=== PATIENT | female | born 1995 | race Caucasian/White ===

== ENCOUNTER 2025-08-21 09:55 | Emergency (ER) | payer BC ==
[2025-08-21 10:28] LABS: Absolute Lymphocytes (CBC) 1.1 K/uL (0.7-4.9); Hematocrit 39.7 % (36.0-45.0); Hemoglobin 13.3 g/dL (12.0-15.0); MCH 31.7 pg (27.0-35.0); MCHC 33.4 g/dL (32.0-36.0); MCV 94.8 fL (80-100); MPV 7.6 fL (7.6-11.3); Nucleated RBC Absolute Count 0.0 (0-0); Nucleated Red Blood Cells % 0.0 % (0-0); RBC Red Blood Cell Count 4.18 M/uL (3.86-4.86); White Blood Count 5.10 thou/uL (4.3-10.9)
[2025-08-21 10:53] LABS: ALT/SGPT < 14 U/L (13-56); AST/SGOT < 10 U/L (15-37); Albumin 4.1 g/dL (3.4-5.0); Albumin/Globulin Ratio 1.3 (1.1-1.8); Alkaline Phosphatase 32 U/L (45-117); Anion Gap 10.1 mEq/L (5.0-15.0); BUN Blood Urea Nitrogen 14 mg/dL (7-18); Bilirubin Indirect, Calculated 0.4 mg/dL (0.2-0.8); Globulin 3.2 g/dL (2.3-3.5); Glucose Level 108 mg/dL (74-106); Magnesium 2.1 mg/dL (1.6-2.4); Potassium 3.1 mEq/L (3.5-5.1); Troponin High Sensitivity 3.2 pg/mL (<58.9)
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
[2025-08-21] MEDS ORDERED: POTASSIUM 25 MEQ EFFERV TAB ONE (11:37)
[2025-08-21 11:49] VITALS: O2SAT 100
[2025-08-21 11:58] VITALS: BP 129/69; TEMP 97
== END 2025-08-21 11:44 | disposition home or self-care (01) ==
LOC: ER 09:55
DX: R55 Syncope and collapse (principal); F17.210 Nicotine dependence, cigarettes, uncomplicated
CPT/HCPCS: 36415; 80048; 80076; 83735; 84484; 84703; 85025; 93005; 99285